=== PATIENT | male | born 1970 | race Hispanic/Latino ===

== ENCOUNTER 2017-01-06 22:08 | Emergency (ER) | payer MEDICARE, MEDICAID ==
[2017-01-06 22:19] VITALS: BP 116/70; PULSE 87; RESP 16; TEMP 98.4; O2SAT 96
== END 2017-01-07 03:36 | disposition left against medical advice (07) ==
LOC: H.ER 22:08
DX: Z02.89 Encounter for other administrative examinations (principal)

== ENCOUNTER 2018-07-02 21:25 | Emergency (ER) | payer MEDICARE, MEDICAID ==
[2018-07-02 21:26] VITALS: BMI 23.3
[2018-07-02 21:34] VITALS: BP 111/63; PULSE 92; RESP 16; TEMP 99.1; O2SAT 99
== END 2018-07-02 22:00 | disposition left against medical advice (07) ==
LOC: H.ER 21:25
DX: Z02.89 Encounter for other administrative examinations (principal)

== ENCOUNTER 2018-08-06 12:04 | Emergency (ER) | payer MEDICARE, MEDICAID ==
[2018-08-06 12:05] VITALS: BMI 23.3
[2018-08-06 12:10] VITALS: BP 101/57; PULSE 89; RESP 18; TEMP 98.6; O2SAT 99
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
== END 2018-08-06 13:13 | disposition left against medical advice (07) ==
LOC: H.ER 12:04
DX: M79.641 Pain in right hand (principal)

== ENCOUNTER 2018-08-31 13:53 | Emergency (ER) | payer MEDICARE, MEDICAID ==
[2018-08-31 13:53] VITALS: BMI 23.3
[2018-08-31 14:01] VITALS: BP 116/82; PULSE 97; RESP 16; TEMP 98; O2SAT 97
== END 2018-08-31 14:59 | disposition left against medical advice (07) ==
LOC: H.ER 13:53
DX: Z02.89 Encounter for other administrative examinations (principal)

== ENCOUNTER 2018-12-04 02:20 | Emergency (ER) | payer MEDICARE, MEDICAID ==
[2018-12-04 02:44] VITALS: BMI 25.2
[2018-12-04 02:46] VITALS: BP 130/87; PULSE 89; RESP 18; TEMP 98.6; O2SAT 100
[2018-12-04] MEDS ORDERED: Naproxen 500 MG TAB PO ONE ×2 (03:05→03:26)
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
== END 2018-12-04 03:15 | disposition home or self-care (01) ==
LOC: H.ER 02:20
DX: M54.9 Dorsalgia, unspecified (principal)